=== PATIENT | female | born 1990 | race Caucasian/White ===

== ENCOUNTER 2018-05-16 04:17 | Emergency (ER) | payer SELFPAY ==
--- NOTE | 2018-05-16 04:19 | NUR ---
Patient does not wish to proceed with medical care recommended by yessy. Patient given information related to possible complications, up to and including , which could occur as a result of leaving hospital at this time. Patient verbalizes understanding of risks involved leaving against medical advice. Patient has signed AMA form. pt refused to have any med care or vss taken . CHP at bedside.
== END 2018-05-16 04:29 ==
LOC: MED 04:17
DX: Z02.89 Encounter for other administrative examinations (principal)
CPT/HCPCS: 99283